=== PATIENT | male | born 1955 | race African-American/Black ===

== ENCOUNTER → 2020-09-05 | Outpatient (CLI) | payer SELFPAY ==
[~2020-09-05] MED LIST: COVID-19 VACCINE (PFIZER)/PF 30 MCG/0.3 ML VIAL IM ONE; EPINEPHRINE INJ/PF 1 MG/1 ML AMPULE IM PRN
== END ==
LOC: EMPHEALTH 07:44
PROVIDERS: ATTEND Internal Medicine
DX: Z23 Encounter for immunization (principal)
CPT/HCPCS: 91300